=== PATIENT | female | born 1985 | race Asian ===

== ENCOUNTER 2016-07-29 08:31 | Inpatient (IN) | payer OTHER ==
[~2016-07-29] VITALS: Ht 165.1 cm; Wt 83.0 kg
[2016-07-29] MEDS ORDERED: OXYTOCIN 20 UNITS/LR PREMIX 1,000 ML IV SCH (09:16)
[2016-07-29] MEDS ORDERED: METHYLERGONOVINE 0.2 MG/ML AMP IM SCH (09:20)
[2016-07-29] MEDS ORDERED: OXYTOCIN 10 UNITS/ML VIAL IM PRN ×2 (09:20→20:40)
[2016-07-29] MEDS ORDERED: NALBUPHINE 10 MG/ML AMP IVP PRN (09:20)
[2016-07-29] MEDS ORDERED: CARBOPROST 250 MCG/ML AMP IM PRN (09:20)
[2016-07-29] MEDS ORDERED: PROMETHAZINE 25 MG/ML VIAL IVP PRN (09:20)
[2016-07-29] MEDS ORDERED: AMPICILLIN 2,000 MG in NACL 0.9% 100 ML IV SCH (09:28)
[2016-07-29] MEDS ORDERED: AMPICILLIN 2,000 MG VIAL ONE (09:35)
[2016-07-29] MEDS: LACTATED RINGERS 1,000 ML IV SCH ×2 (10:08→17:22)
[2016-07-29] MEDS ORDERED: AMPICILLIN 1,000 MG VIAL IVP SCH (12:00)
[2016-07-29] MEDS ORDERED: AMPICILLIN 1,000 MG VIAL ONE ×2 (12:52→17:43)
[2016-07-29] MEDS ORDERED: OXYTOCIN 20 UNITS/LR PREMIX 1,000 ML IV ONE (12:53)
[2016-07-29] MEDS ORDERED: ROPIVACAINE 0.2%/NS PREMIX 250 ML EPI ONE (13:54)
[2016-07-29] MEDS ORDERED: ROPIVACAINE 0.2%/NS PREMIX 250 ML EPI SCH (14:10)
[2016-07-29] MEDS ORDERED: OXYTOCIN 10 UNITS/ML VIAL ONE (19:45)
[2016-07-29] MEDS ORDERED: WITCH HAZEL 40 PAD PACKAGE TP PRN (20:40)
[2016-07-29] MEDS ORDERED: BENZOCAINE/MENTHOL 20%-0.5% 60 GM CAN TP PRN (20:40)
[2016-07-29] MEDS ORDERED: METHYLERGONOVINE 0.2 MG/ML AMP IM PRN (20:40)
[2016-07-29] MEDS ORDERED: MEASLES, MUMPS, AND RUBELLA 1 VIAL SQVAC PRN (20:40)
[2016-07-29] MEDS ORDERED: TEMAZEPAM 15 MG CAP PO PRN (20:40)
[2016-07-29] MEDS ORDERED: DOCUSATE SOD/SENNA 50/8.6 MG 1 TAB PO SCH (21:00)
[2016-07-30] MEDS: HYDROcodone/APAP 5/325 MG 1 TAB TAB PO PRN ×2 (04:39→21:29)
[2016-07-30] MEDS ORDERED: BETHANECHOL 25 MG TAB PO PRN (07:35)
[2016-07-30] MEDS: oxyCODONE/APAP 5/325 MG 1 TAB TAB PO PRN ×2 (08:03→16:02)
--- NOTE | 2016-07-30 08:30 | NUR ---
PATIENT HAS BEEN SCREENED AND CATEGORIZED LOW NUTRITION RISK. PATIENT WILL BE SEEN WITHIN 7 DAYS OF ADMISSION. 08/05/[address]
[2016-07-31] MEDS: HYDROcodone/APAP 5/325 MG 1 TAB TAB PO PRN (02:51)
[2016-07-31] MEDS: IBUPROFEN 800 MG TAB PO PRN ×2 (08:09→14:54)
[2016-07-31] MEDS ORDERED: OXYTOCIN 10 UNITS/ML VIAL ONE (16:50)
== END 2016-07-31 15:30 | disposition home or self-care (01) | DRG 775 ==
LOC: MLD 08:31 → MFCC 07-30 02:41
PROVIDERS: ADMIT Obstetrics & Gynecology; ATTEND Obstetrics & Gynecology
PROC: 10E0XZZ Delivery of Products of Conception, External Approach (ICD-10-PCS; principal; 2016-07-29)
PROC: 0KQM0ZZ Repair Perineum Muscle, Open Approach (ICD-10-PCS; 2016-07-29)
PROC: 3E033VJ Introduction of Other Hormone into Peripheral Vein, Percutaneous Approach (ICD-10-PCS; 2016-07-29)
PROC: 3E0S3CZ (ICD-10-PCS; 2016-07-29)
PROC: 00HU33Z Insertion of Infusion Device into Spinal Canal, Percutaneous Approach (ICD-10-PCS; 2016-07-29)
PROC: 3E0234Z Introduction of Serum, Toxoid and Vaccine into Muscle, Percutaneous Approach (ICD-10-PCS; 2016-07-29)
DX: O70.1 Second degree perineal laceration during delivery (principal); Z37.0 Single live birth; Z3A.38 38 weeks gestation of pregnancy; Z23 Encounter for immunization